=== PATIENT | female | born 2005 | race Caucasian/White ===

== ENCOUNTER 2025-08-17 18:24 | Inpatient (IN) ==
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
[2025-08-17 20:44] LABS: Amphetamines+Metham, Urine Neg (Neg); MDMA (Ecstacy), Urine Neg (Neg); Marijuana, Urine Pos (Neg)
[2025-08-17 20:45] LABS: Appearance Urine Cloudy (Clear); Bacteria Urine Automated 2+ (None Seen); Glucose Urine UA Negative (Negative); RBC Urine Automated 0-2 /hpf (0-2); WBC Urine Automated 0-5 /hpf (0-5)
[2025-08-17 20:47] LABS: Cast Urine Automated 0-2 /lpf (0-2)
[2025-08-17 21:18] LABS: Alanine Aminotransferase 11.0 U/L (7-52); Albumin Globulin Ratio 1.5 (0.9-2); Albumin Level 4.8 gm/dl (3.4-5.0); Alkaline Phosphatase 55.0 U/L (34-104); Anion Gap 10.0 (3-11); Bilirubin,Total 0.9 mg/dl (0.2-1.0); Blood Urea Nitrogen 13.0 mg/dl (6-23); Calcium 9.9 mg/dl (8.6-10.3); Carbon Dioxide 26.0 mmol/L (21-32); Chloride 102.0 mmol/L (98-107); Creatinine Clr Calc Pharmacy 142.6 ml/min; Globulin 3.3 gm/dl (2.5-4.0); Glucose 69.0 mg/dl (70-99(Fasting)); Potassium 3.5 mmol/L (3.5-5.1); Sodium 138.0 mmol/L (136-145); Total Protein 8.1 gm/dl (6.0-8.3)
[2025-08-17 21:20] LABS: Pregnancy Test, Serum Negative (Negative); Salicylate < 3.0 mg/dl (3.0-30)
[2025-08-17 21:26] LABS: Hematocrit (blood only) 38.2 % (37.0-47.0); Hemoglobin 12.8 g/dL (12.0-16.0); Immature Granulocytes # (auto) 0.01 K/uL (0.01-0.20); Immature Granulocytes % (auto) 0.1 %; Mean Corpuscular Hemoglobin 29.8 pg (25.0-34.0); Mean Corpuscular Volume 88.8 fL (80.0-100.0); Platelet Count 331 K/uL (130-400); RDW Standard Deviation 42.7 fL (36.4-46.3); Red Blood Count 4.30 M/uL (4.20-5.40); White Blood Count 7.70 K/ul (4.8-10.8)
[2025-08-17 21:33] LABS: Thyroid Stimulating Hormone 0.772 uIu/ml (0.300-4.500)
[2025-08-17 21:57] LABS: Acetaminophen < 3 ug/ml (10-30)
--- NOTE | 2025-08-18 04:56 | Emergency Department Note ---
ED Visit Note Patient was signed out to me at change of shift by Dr. Del Valle, patient is currently under 201 for features of psychosis, bed search has been initiated. Bed search is ongoing, patient did not require any acute interventions on my part overnight during my shift. Patient was signed out to my colleague, Dr. Alejo, pending ongoing bed search for further management under 201. .
--- NOTE | 2025-08-18 07:00 | Emergency Department Note ---
ED Visit Note The patient was taken signout from Dr. Noriega at change of shift. Patient was seen initially by Dr. Del Valle. Please see his note for details of the patient's initial presentation. Patient had been medically cleared and was pending bed search for inpatient psychiatric treatment for new psychosis. Consultation for admission to [facility]. is pending. Patient was seen by [facility] and was accepted for voluntary inpatient psychiatric treatment under a 201. .
[2025-08-18] MEDS ORDERED: SODIUM CHLORIDE 0.65% NA SOLN 45 ML (OCEAN) PRN (08:50)
[2025-08-18] MEDS ORDERED: BISMUTH SUBSALICYLATE 262 MG CHEW PO PRN (08:50)
[2025-08-18] MEDS ORDERED: MAGNESIUM HYDROXIDE SUSP 30 ML UDC PO PRN (08:50)
[2025-08-18] MEDS ORDERED: ALUMINUM/MAGNESIUM SUSP 30 ML UDC PO PRN (08:50)
[2025-08-18] MEDS ORDERED: ACETAMINOPHEN 325 MG TAB PO PRN (08:50)
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
--- NOTE | 2025-08-19 11:47 | Electrocardiogram Report ---
Test Reason : Blood Pressure : */* mmHG Vent. Rate : 56 BPM Atrial Rate : 56 BPM P-R Int : 136 ms QRS Dur : 88 ms QT Int : 450 ms P-R-T Axes : 52 77 62 degrees QTcB Int : 434 ms Sinus bradycardia with sinus arrhythmia Otherwise normal ECG No previous ECGs available Confirmed by Juan Manuel Roman ([id number]) on 08/19/2025 11:47:30 AM Referred By: REFERRED SELF Confirmed By: Juan Manuel Roman
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
== END 2025-08-20 15:17 | disposition home or self-care (01) | DRG 885 ==
LOC: ED 18:24 → 3S 08-18 08:25
DX: Z87.891 Personal history of nicotine dependence; F84.0 Autistic disorder; F90.9 Attention-deficit hyperactivity disorder, unspecified type; F23 Brief psychotic disorder; Z11.52 Encounter for screening for COVID-19; F32.A Depression, unspecified; F12.90 Cannabis use, unspecified, uncomplicated; F10.90 Alcohol use, unspecified, uncomplicated; Z79.899 Other long term (current) drug therapy